=== PATIENT | male | born 1990 | race Two or more races ===

== ENCOUNTER 2021-07-23 15:31 | Emergency (ER) | payer OTHER ==
[~2021-07-23] VITALS: Ht 167.6 cm; Wt 117.9 kg
[2021-07-23] MEDS ORDERED: TETANUS-DIPTH-ACEL PERTUSSIS 0.5ML SYR Tdap IM ONE (17:45)
[2021-07-23 18:08] VITALS: BP 121/55
== END 2021-07-23 18:36 | disposition home or self-care (01) ==
LOC: ER 15:31
DX: S61.214A Laceration without foreign body of right ring finger without damage to nail, initial encounter (principal); W26.8XXA Contact with other sharp object(s), not elsewhere classified, initial encounter; Y93.89 Activity, other specified; Y92.89 Other specified places as the place of occurrence of the external cause; Y99.8 Other external cause status
CPT/HCPCS: 12001; 90471; 90715